=== PATIENT | female | born 1930 | race Hispanic/Latino ===

== ENCOUNTER 2018-01-26 08:48 | Inpatient (IN) | payer MEDICARE, OTHER ==
[~2018-01-26] VITALS: Ht 160 cm; Wt 82.6 kg
[2018-01-26] VITALS (11 sets, daily range): BP systolic 83–147; BP diastolic 43–92
[~2018-01-26 08:48] MED LIST: ASPI-555 PO; ATOR10 PO; BET120L MISC; FERR15DR26 PO; FURO20TA6 PO; GLUC1VIA3 IJ; GUAI100S42 PO; LISI40TA4 PO; LORA0.5T83 PO; MEMA5TAB15 PO; NATE60TA8 PO; POLY17PO3 PO; PROM25TA7 PO; SITA1TAB2 PO; TYL3 PO
[2018-01-26 09:17] LABS: BASOPHILS % (AUTO) 0.4 % (0.0-5.0); EOSINOPHILS % (AUTO) 0.5 % (0.0-8.0); LYMPHOCYTES % (AUTO) 16.5 % (21.0-51.0); MEAN CORPUSCULAR HEMOGLOBIN 30.1 pg (27.0-33.0); MEAN CORPUSCULAR HGB CONC 31.6 g/dL (32.0-36.0); MONOCYTES % (AUTO) 4.4 % (3.0-13.0); NEUTROPHILS % (AUTO) 78.2 % (40.0-77.0); NUCLEATED RED BLOOD CELLS 0.1 % (0.0-0.19); PLATELET COUNT (AUTO) 255 K/uL (130-400); RED BLOOD CELL COUNT(AUTO) 3.26 MIL/uL (4.00-5.50); RED CELL DISTRIBUTION WIDTH 14.3 % (11.0-15.5); WHITE BLOOD COUNT (AUTO) 9.8 K/uL (4.8-10.8)
[2018-01-26] MEDS ORDERED: SODIUM CHLORIDE 0.9% 1000ML 3,000 ML IV ONE (09:18)
[2018-01-26] MEDS ORDERED: ZOSYN 3.375GM+NS 50ML 50 ML IV ONE (09:18)
[2018-01-26] MEDS ORDERED: ACETAMINOPHEN 650 MG SUPPOSITORY RC ONE (09:19)
[2018-01-26 09:26] LABS: BILIRUBIN,URINE SMALL (NEGATIVE); GLUCOSE, URINE (UA) 500 mg/dL (NEGATIVE); KETONES,URINE 5 mg/dL (NEGATIVE); LEUKOCYTE ESTERASE ,URINE LARGE (NEGATIVE); NITRATE,URINE NEGATIVE (NEGATIVE); OCCULT BLOOD,URINE LARGE (NEGATIVE); PH,URINE 5.5 (5.0-8.0); PROTEIN,URINE >=300 (NEGATIVE); UROBILINOGEN,URINE 0.2 mg/dL (0.2-1.0)
[2018-01-26 09:28] LABS: APPEARANCE,URINE CLOUDY (CLEAR); COLOR,URINE BROWN (YELLOW)
[2018-01-26 09:29] LABS: INR 1.05 (0.85-1.15); PARTIAL THROMBOPLASTIN TIME 25.5 SEC (26.3-35.5)
[2018-01-26 09:35] LABS: BACTERIA,URINE Many /HPF (None Seen); RBC,URINE >100 /HPF (0-1); WBC,URINE TNTC /HPF (0-1)
[2018-01-26] MEDS ORDERED: VANCOMYCIN 1GM+NS 250ML 250 ML IV ONE (09:37)
[2018-01-26 09:54] LABS: ALANINE AMINOTRANSFERASE 11 U/L (12-78); ALBUMIN 1.9 g/dL (3.5-5.0); ASPARTATE AMINOTRANSFERASE 18 U/L (10-37); BILIRUBIN,TOTAL 0.3 mg/dL (0.2-1.0); CARBON DIOXIDE 27 mmol/L (21-32); CHLORIDE 113 mmol/L (101-111); CREATINE KINASE MB 1.2 ng/mL (0.5-3.6); CREATINE KINASE, TOTAL 191 U/L (21-232); CREATININE 3.7 mg/dL (0.5-1.5); GLOMERULAR FILTR. RATE CALC 12 mL/min (>60); MYOGLOBIN 1379 ng/mL (10-92); POTASSIUM 4.5 mmol/L (3.5-5.1); SODIUM SERUM 147 mmol/L (136-145); TOTAL PROTEIN, SERUM 7.2 g/dL (6.0-8.3); TROPONIN I < 0.04 ng/mL (0.00-0.06); UREA NITROGEN, BLOOD 60 mg/dL (7-18)
[2018-01-26 10:02] LABS: ABG BASE EXCESS -6.2 mmol/L (-2.0-3.0); ABG HCO3 20.8 mmol/L (21.0-28.0); ABG OXYGEN SATURATION 94.6 % (95.0-99.0); ABG PCO2 47 mmHg (32-45)
[2018-01-26 10:12] LABS: GLUCOSE,RANDOM 645 mg/dL (70-105)
[2018-01-26] MEDS ORDERED: INSULIN HUMULIN R 100 UNIT/ML 3ML ONE (10:19)
[2018-01-26] MEDS ORDERED: SODIUM CHLORIDE 0.9% 1000ML 1,000 ML IV ONE (14:15)
[2018-01-26] MEDS: PANTOPRAZOLE SODIUM 40 MG TABLET.DR PO SCH (16:29)
[2018-01-26] MEDS ORDERED: VANCOMYCIN PROTOCOL PER PHARMACY IV SCH (16:30)
[2018-01-26] MEDS ORDERED: COMPOUND IV REFRIGERATED 1 EACH IVSOLN MISC PRN (16:45)
[2018-01-26] MEDS: SODIUM CHLORIDE 0.9% 1000ML 1,000 ML IV SCH (17:38)
[2018-01-26] MEDS: ZOSYN 3.375GM+NS 50ML 50 ML IV SCH (17:46)
[2018-01-26] MEDS: ENOXAPARIN SODIUM 30 MG/0.3 ML SQ SCH (17:48)
[2018-01-26] MEDS ORDERED: DIATR MEGLU/DIATRIZOATE SODIUM 30 ML BOTTLE ONE (19:43)
[2018-01-27] VITALS (16 sets, daily range): BP systolic 80–189; BP diastolic 33–107
[2018-01-27] MEDS: ZOSYN 3.375GM+NS 50ML 50 ML IV SCH ×3 (00:51→20:01)
[2018-01-27] MEDS: SODIUM CHLORIDE 0.9% 1000ML 1,000 ML IV SCH (03:01)
[2018-01-27 07:58] LABS: CREATININE 3.1 mg/dL (0.5-1.5); POTASSIUM 4.4 mmol/L (3.5-5.1)
[2018-01-27 08:07] LABS: BASOPHILS % (AUTO) 0.5 % (0.0-5.0); EOSINOPHILS % (AUTO) 0.3 % (0.0-8.0); HEMATOCRIT 30.1 % (36-48); LYMPHOCYTES % (AUTO) 13.9 % (21.0-51.0); MEAN CORPUSCULAR HEMOGLOBIN 28.7 pg (27.0-33.0); MEAN CORPUSCULAR HGB CONC 31.5 g/dL (32.0-36.0); MEAN CORPUSCULAR VOLUME 91.1 fL (79-99); NEUTROPHILS % (AUTO) 80.3 % (40.0-77.0); NUCLEATED RED BLOOD CELLS 0.2 % (0.0-0.19); PLATELET COUNT (AUTO) 202 K/uL (130-400); RED BLOOD CELL COUNT(AUTO) 3.31 MIL/uL (4.00-5.50); RED CELL DISTRIBUTION WIDTH 13.7 % (11.0-15.5); WHITE BLOOD COUNT (AUTO) 18.3 K/uL (4.8-10.8)
[2018-01-27] MEDS: PANTOPRAZOLE SODIUM 40 MG TABLET.DR PO SCH (08:35)
[2018-01-27] MEDS: DEXTROSE 5%-WATER 1,000 ML IV SCH (11:30)
[2018-01-27] MEDS: ENOXAPARIN SODIUM 30 MG/0.3 ML SQ SCH (20:02)
[2018-01-28 00:20] VITALS: BP 119/52
[2018-01-28 04:20] VITALS: BP 138/54
[2018-01-28] MEDS: DEXTROSE 5%-WATER 1,000 ML IV SCH ×2 (04:22→13:55)
[2018-01-28] MEDS: ZOSYN 3.375GM+NS 50ML 50 ML IV SCH ×3 (04:23→17:00)
[2018-01-28 08:18] VITALS: BP 118/42
[2018-01-28] MEDS ORDERED: VANCOMYCIN 1.25 GM in SODIUM CHLORIDE 0.9% 250 ML IV SCH ×2 (09:00→13:00)
[2018-01-28] MEDS: PANTOPRAZOLE SODIUM 40 MG TABLET.DR PO SCH (09:00)
[2018-01-28] MEDS ORDERED: BUSP30TA2 PO (09:49)
[2018-01-28] MEDS ORDERED: CHLO50TA24 PO (09:49)
[2018-01-28] MEDS ORDERED: MULT-248 PO (09:49)
[2018-01-28] MEDS ORDERED: OLAN10TA3 PO (09:49)
[2018-01-28] MEDS ORDERED: INSU100I21 SQ ×2 (09:49)
[2018-01-28] MEDS ORDERED: NATE60TA8 PO (09:49)
[2018-01-28] MEDS ORDERED: TRAM50TA4 PO (09:49)
[2018-01-28] MEDS ORDERED: FLUO20CA30 PO (09:49)
[2018-01-28] MEDS ORDERED: ASPI-555 PO (09:58)
[2018-01-28] MEDS ORDERED: MEMA5TAB15 PO (09:58)
[2018-01-28] MEDS ORDERED: FERR220E7 PO (09:58)
[2018-01-28] MEDS ORDERED: LISI40TA4 PO (09:58)
[2018-01-28] MEDS ORDERED: ATOR10 PO (09:58)
[2018-01-28] MEDS ORDERED: FURO20TA4 PO (09:58)
[2018-01-28 11:31] VITALS: BP 107/76
[2018-01-28 13:12] LABS: CREATININE 2.6 mg/dL (0.5-1.5); POTASSIUM 4.7 mmol/L (3.5-5.1)
[2018-01-28] MEDS: ENOXAPARIN SODIUM 30 MG/0.3 ML SQ SCH (13:14)
[2018-01-28 13:36] LABS: HEMATOCRIT 26.7 % (36-48); MEAN CORPUSCULAR HEMOGLOBIN 30.2 pg (27.0-33.0); MEAN CORPUSCULAR HGB CONC 32.3 g/dL (32.0-36.0); MEAN CORPUSCULAR VOLUME 93.4 fL (79-99); PLATELET COUNT (AUTO) 200 K/uL (130-400); RED BLOOD CELL COUNT(AUTO) 2.86 MIL/uL (4.00-5.50); RED CELL DISTRIBUTION WIDTH 14.1 % (11.0-15.5); WHITE BLOOD COUNT (AUTO) 8.6 K/uL (4.8-10.8)
[2018-01-28] MEDS: INSULIN HUMULIN R 100 UNIT/ML 3ML SQ SCH ×2 (15:15→22:23)
[2018-01-28 15:39] VITALS: BP 96/69
[2018-01-28 19:25] VITALS: BP 107/50
[2018-01-28] MEDS: INSULIN GLARGINE 100 UNITS/ML 10 ML VIAL SQ SCH (22:22)
[2018-01-29] MEDS: ZOSYN 3.375GM+NS 50ML 50 ML IV SCH ×3 (00:16→18:07)
[2018-01-29 00:35] VITALS: BP 126/50
[2018-01-29] MEDS: DEXTROSE 5%-WATER 1,000 ML IV SCH ×2 (00:39→18:22)
[2018-01-29 04:10] VITALS: BP 107/47
[2018-01-29] MEDS: INSULIN HUMULIN R 100 UNIT/ML 3ML SQ SCH ×3 (07:00→18:33)
[2018-01-29 07:38] VITALS: BP 110/59
[2018-01-29] MEDS: PANTOPRAZOLE SODIUM 40 MG TABLET.DR PO SCH (08:23)
[2018-01-29] MEDS: INSULIN GLARGINE 100 UNITS/ML 10 ML VIAL SQ SCH ×2 (08:31→21:05)
[2018-01-29 11:53] VITALS: BP 108/65
[2018-01-29 16:42] VITALS: BP 137/48
[2018-01-29] MEDS: ENOXAPARIN SODIUM 30 MG/0.3 ML SQ SCH (18:07)
[2018-01-29 20:00] VITALS: BP 139/59
[2018-01-30] VITALS: BP 135/55
[2018-01-30] MEDS: INSULIN HUMULIN R 100 UNIT/ML 3ML SQ SCH ×2 (01:05→06:00)
[2018-01-30] MEDS: ZOSYN 3.375GM+NS 50ML 50 ML IV SCH ×2 (01:05→09:31)
[2018-01-30 04:00] VITALS: BP 133/47
[2018-01-30] MEDS: DEXTROSE 5%-WATER 1,000 ML IV SCH (06:29)
[2018-01-30 07:30] VITALS: BP 137/80
[2018-01-30] MEDS: PANTOPRAZOLE SODIUM 40 MG TABLET.DR PO SCH (09:00)
[2018-01-30] MEDS: INSULIN GLARGINE 100 UNITS/ML 10 ML VIAL SQ SCH (09:35)
[2018-01-30 11:00] VITALS: BP 149/72
[2018-01-30 16:00] VITALS: BP 160/71
== END 2018-01-30 17:10 | disposition hospice, home (50) | DRG 871 ==
LOC: EDH 08:48 → EDHIP 11:59 → 2CH 15:49 → 3DH 01-27 14:32
PROVIDERS: ADMIT Internal Medicine; ATTEND Internal Medicine
DX: A41.9 Sepsis, unspecified organism (principal); R65.21 Severe sepsis with septic shock; N17.9 Acute kidney failure, unspecified; G93.40 Encephalopathy, unspecified; E11.51 Type 2 diabetes mellitus with diabetic peripheral angiopathy without gangrene; D64.9 Anemia, unspecified; E11.9 Type 2 diabetes mellitus without complications; E87.0 Hyperosmolality and hypernatremia; N82.3 Fistula of vagina to large intestine; N39.0 Urinary tract infection, site not specified; E66.9 Obesity, unspecified; E78.5 Hyperlipidemia, unspecified; Z74.01 Bed confinement status; Z68.32 Body mass index [BMI] 32.0-32.9, adult; F03.90 Unspecified dementia, unspecified severity, without behavioral disturbance, psychotic disturbance, mood disturbance, and anxiety; I10 Essential (primary) hypertension; Z86.73 Personal history of transient ischemic attack (TIA), and cerebral infarction without residual deficits; Z87.440 Personal history of urinary (tract) infections; S91.302A Unspecified open wound, left foot, initial encounter; X58.XXXA Exposure to other specified factors, initial encounter; Y93.89 Activity, other specified; Y92.89 Other specified places as the place of occurrence of the external cause; Y99.8 Other external cause status; F32.9 Major depressive disorder, single episode, unspecified
CPT/HCPCS: 36415; 36600; 70450; 71045; 74176; 80048; 80053; 81001; 82550; 82553; 82803; 82948; 83605; 83874; 84484; 85025; 85027; 85610; 85730; 87040; 87088; 93005; 99291; J1650; J1815; J2543; J3370; J7030; J7070; Q9963